=== PATIENT | female | born 1955 | race Caucasian/White ===

== ENCOUNTER 2017-11-08 11:06 | Outpatient (CLI) | payer OTHER ==
--- NOTE | 2017-11-08 16:56 | XRAY Report ---
RIGHT FOOT, THREE VIEWS: 11/08/2017 HISTORY: Right foot pain after trauma 1 month ago. Three views of the right foot are interpreted without comparison. FINDINGS: There is a small plantar calcaneal spur. Scattered degenerative changes of the interphalangeal joints of the toes and of the first metatarsophalangeal and first metatarsophalangeal first cuneiform articulations. Nondisplaced transverse subacute fracture, right first distal phalanx. No other fracture is seen. IMPRESSION: SCATTERED DEGENERATIVE CHANGES RIGHT FOOT. NONDISPLACED SUBACUTE RIGHT FIRST DISTAL PHALANX TRANSVERSE FRACTURE. TD: 11/08/2017 16:55 JUANY
== END 2017-11-08 11:07 | disposition home or self-care (01) ==
LOC: DI 11:06
PROVIDERS: ATTEND Podiatrist
DX: S92.424A Nondisplaced fracture of distal phalanx of right great toe, initial encounter for closed fracture (principal); M19.071 Primary osteoarthritis, right ankle and foot

== ENCOUNTER 2023-03-06 07:25 | Outpatient (CLI) | payer MEDICARE ==
[2023-03-06 15:14] LABS: BASOPHILS # (AUTO) 0.1 10^3/uL (0.0-0.1); BASOPHILS % (AUTO) 1.1 %; EOSINOPHILS # (AUTO) 0.2 10^3/uL (0.0-0.7); EOSINOPHILS % (AUTO) 3.2 %; HCT - HEMATOCRIT 45.2 % (37.0-47.0); HGB - HEMOGLOBIN 14.2 g/dL (12.0-16.0); LYMPHOCYTES # (AUTO) 1.6 10^3/uL (1.5-3.5); LYMPHOCYTES % (AUTO) 33.5 %; MEAN CORPUSCULAR HEMOGLOBIN 28.8 pg (27.0-31.0); MEAN CORPUSCULAR HGB CONC 31.4 g/dL (32.0-36.0); MEAN CORPUSCULAR VOLUME 91.7 fL (81.0-99.0); MEAN PLATELET VOLUME 11.8 fL (7.9-10.8); MONOCYTES # (AUTO) 0.5 10^3/uL (0.0-1.0); MONOCYTES % (AUTO) 10.1 %; NEUTROPHILS # (AUTO) 2.4 10^3/uL (1.5-6.6); NEUTROPHILS % (AUTO) 51.9 %; PLT - PLATELET COUNT 302 10^3/uL (130-450); RED BLOOD COUNT 4.93 10^6/uL (4.20-5.40); RED CELL DISTRIBUTION WIDTH 16.6 % (12.0-15.0); WHITE BLOOD COUNT 4.7 x10^3/uL (4.8-10.8)
[2023-03-06 15:57] LABS: % IRON SATURATION 20 % (20-50); CA 125 7.4 U/mL (0.5-35.0); CHOL/HDL RATIO 2.3 (<4.4); CHOLESTEROL 243 mg/dL; CRP - C-REACTIVE PROTEIN 0.7 mg/dL (<0.5); HDL CHOLESTEROL 108 mg/dL; IRON 92 ug/dL (50-212); LDL CHOLESTEROL,CALCULATED 123 mg/dL; LDL/HDL RATIO 1.1 (<4.4); TOTAL IRON BINDING CAPACITY 466 ug/dL (250-450); TRANSFERRIN 333 mg/dL (203-362); TRIGLYCERIDES 58 mg/dL (48-352); VLDL CHOLESTEROL 12 mg/dL
[2023-03-06 15:58] LABS: THYROID STIMULATING HORMONE 4.11 uIU/mL (0.34-5.60)
[2023-03-06 16:05] LABS: FERRITIN 15.5 ng/mL (11.0-306.8)
[2023-03-06 20:59] LABS: ESTIMATED AVERAGE GLUCOSE 97 mg/dL (70-100)
[2023-03-07 10:09] LABS: CALCIUM IONIZED SERUM 4.7 mg/dL (4.5-5.6); VITAMIN D 25-HYDROXY 40.4 ng/mL (30.0-100.0)
== END 2023-03-06 07:26 | disposition home or self-care (01) ==
LOC: LAB.S 07:25
PROVIDERS: ATTEND Internal Medicine
DX: I10 Essential (primary) hypertension (principal); E72.11 Homocystinuria; E20.1 Pseudohypoparathyroidism; Z13.1 Encounter for screening for diabetes mellitus; T78.3XXA Angioneurotic edema, initial encounter; E61.1 Iron deficiency
CPT/HCPCS: 36415; 80061; 82306; 82330; 82607; 82728; 82746; 82985; 83036; 83090; 83540; 83721; 83921; 83970; 84443; 84466; 85025; 86140; 86304

== ENCOUNTER 2023-09-12 08:00 | Outpatient (CLI) | payer MEDICARE, BC | END 2023-09-12 08:01 | disposition home or self-care (01) | LOC: LAB.S 08:00 | PROVIDERS: ATTEND Registered Nurse | DX: R05.1 Acute cough (principal) ==

== ENCOUNTER 2024-02-07 17:45 | Outpatient (CLI) | payer MEDICARE, BC | END 2024-02-07 23:59 | disposition critical access hospital (66) | LOC: EMS 17:45 | DX: R42 Dizziness and giddiness (principal); R51.9 Headache, unspecified; Z91.81 History of falling | CPT/HCPCS: A0425; A0429 ==